=== PATIENT | female | born 1955 | race Caucasian/White ===

== ENCOUNTER → 2020-08-16 | Outpatient (CLI) | payer MEDICARE, OTHER ==
--- NOTE | 2020-08-16 13:05 | XR ---
EXAMINATION TYPE: XR KUB DATE OF EXAM: 08/16/2020 12:10 PM CLINICAL HISTORY: History of lithotripsy and bilateral renal calculi. TECHNIQUE: Two supine KUB images of the abdomen are obtained. COMPARISON: Post recent abdominal x-ray June 20, 2015. FINDINGS: Interval progression in bilateral renal nephrolithiasis. Roughly 10 right renal calculi up to 16 mm in size centrally in the right kidney. There are 2-3 adjacent left renal calculi centrally u p to 8 mm in size. Overall nonobstructive bowel gas pattern. Surgical changes epigastric region redemonstrated. Mild to moderate calcified plaque of the aorta. Multilevel spurring and disc space narrowing in the lower lum bar spine. Visualized lung bases are clear. IMPRESSION: As above.
== END | disposition home or self-care (01) ==
LOC: RADXRMAIN 11:48
PROVIDERS: ATTEND Urology
DX: N20.0 Calculus of kidney (principal)
CPT/HCPCS: 74018

== ENCOUNTER 2022-01-12 19:02 | Inpatient (IN) | payer MEDICARE, OTHER ==
[2022-01-12] MEDS ORDERED: ONDANSETRON 4 MG/2 ML VIAL IVP PRN (19:27)
[2022-01-12] MEDS ORDERED: NALOXONE 0.4 MG/ML 1 ML VIAL IV PRN (19:27)
[2022-01-12] MEDS ORDERED: ACETAMINOPHEN TAB 325 MG TAB PO PRN (19:27)
--- NOTE | 2022-01-12 19:30 | ED ---
General Adult HPI - General Chief complaint: Back Pain/Injury Stated complaint: Kidney stone Time Seen by Provider: 01/12/22 19:05 Source: patient, EMS Mode of arrival: EMS Limitations: no limitations - History of Present Illness Initial comments: Dictation was produced using [employer] dictation software. please excuse any grammatical, word or spelling errors. Chief Complaint: 66-year-old female transferred from [facility] for kidney stone History of Present Illness: 66-year-old female she woke up this morning with a kidney stone at 6 AM. She presented to [facility] emergency department where she was evaluated and had been diagnosed with a kidney stone. She has any open 1 cm obstructing kidney stone at the right UPJ. According documentation discussion was held with urologist who recommended patient be discharge if her pain is controlled. Patient refused and didn't feel like she would be able to tolerate the weekend to follow-up in the office on Saturday. Patient was transferred to us. She states her pain is a 5 out of 10 at the bedside after having received multiple doses of Toradol. The ROS documented in this emergency department record has been reviewed and confirmed by me. Those systems with pertinent positive or negative responses have been documented in the HPI. All other systems are other negative and/or noncontributory. PHYSICAL EXAM: General Impression: Alert and oriented x3, not in acute distress HEENT: Normocephalic atraumatic, extra-ocular movements intact, pupils equal and reactive to light bilaterally, mucous membranes moist. Cardiovascular: Heart regular rate and rhythm Chest: Able to complete full sentences, no retractions, no tachypnea Abdomen: abdomen soft, non-tender, non-distended, no organomegaly Musculoskeletal: Pulses present and equal in all extremities, no peripheral edema Motor: no focal deficits noted Neurological: CN II-XII grossly intact, no focal motor or sensory deficits noted Skin: Intact with no visualized rashes Psych: Normal affect and mood ED course: 66-year-old female presents emergency department from [facility]. Patient transferred here for further care. Patient has 1.1 cm obstructing nephrolithiasis at the right UPJ. Patient's well-appearing at the bedside she does not appear to be any significant acute distress. Vital signs upon arrival are stable. Patient case discussed with on-call urologist, Dr. Almaraz who is willing to accept patients care for hospital admission. - Related Data Home Medications Medication Instructions Recorded Confirmed Biotin 5 mg PO DAILY 05/12/15 06/13/15 Calcium Citrate Vitamin D3 2,000 mg PO DAILY 05/12/15 06/13/15 Cyanocobalamin [Vitamin B-12] 500 mcg PO DAILY 05/12/15 06/13/15 Omeprazole [PriLOSEC] 20 mg PO HS 05/12/15 06/13/15 Solifenacin Succinate [Vesicare] 10 mg PO DAILY 05/12/15 06/13/15 Stool Softener 2 tab PO DAILY 05/12/15 06/13/15 Allergies Allergy/AdvReac Type Severity Reaction Status Date / Time hydromorphone HCl Allergy Severe Unknown Verified 01/12/22 19:13 [From Dilaudid] hydrocodone bitartrate Allergy Unknown Verified 01/12/22 19:13 [From [place]] NSAIDS (Non-Steroidal Allergy Swelling Verified 01/12/22 19:13 Anti-Inflamma Penicillins Allergy Rash/Hives Verified 01/12/22 19:13 povidone-iodine Allergy Rash/Hives Verified 01/12/22 19:13 [From Betadine] soap [From Betadine] Allergy Rash/Hives Verified 01/12/22 19:13 strawberry [[place]] Allergy Itching Verified 01/12/22 19:13 Sulfa (Sulfonamide Allergy Rash/Hives Verified 01/12/22 19:13 Antibiotics) Review of Systems ROS Statement: Those systems with pertinent positive or pertinent negative responses have been documented in the HPI. ROS Other: All systems not noted in ROS Statement are negative. Past Medical History Past Medical History: Osteoarthritis (OA), Skin Disorder Additional Past Medical History / Comment(s): Psoriasis, HX perforated duodenal ulcer. PREVIOUS RENAL CALCULUS. History of Any Multi-Drug Resistant Organisms: None Reported Past Surgical History: Joint Replacement, Orthopedic Surgery Additional Past Surgical History / Comment(s): Bilateral knee replacements. Exploratory laparotomy with a omental patching of a perforated duodenal ulcer on 09/29/2013. Laparotomy with. Josefina-en-Y gastric bypass surgery and subtotal gastrectomy on 10/06/2013. Thoracentesis September 2013, Ureteral stent X2, DALI CATARACTS, RT. ANKLE SX. Lithotripsy in Past Anesthesia/Blood Transfusion Reactions: No Reported Reaction Past Psychological History: Anxiety, Depression Smoking Status: Former smoker Past Alcohol Use History: None Reported Past Drug Use History: None Reported - Past Family History Mother Family Medical History: Cancer Additional Family Medical History / Comment(s): Breast Father Family Medical History: Cancer Additional Family Medical History / Comment(s): Lung Sister(s) Family Medical History: Cancer Additional Family Medical History / Comment(s): Pancreatic General Exam Limitations: no limitations Course Vital Signs 01/12/22 19:06 Temperature 98.6 F Pulse Rate 86 Respiratory 18 Rate Blood Pressure 136/113 O2 Sat by Pulse 96 Oximetry Disposition Clinical Impression: Nephrolithiasis Disposition: ADMITTED IP TO THIS [facility] Condition: Fair Referrals: Mario Sue MD [Primary Care Provider] - 1-2 days Decision Time: 19:30
[2022-01-12] MEDS: MORPHINE SULFATE 2 MG/ML SYRINGE IV PRN (20:25)
[2022-01-12] MEDS: PANTOPRAZOLE 40 MG/10 ML VIAL IV SCH (20:25)
[2022-01-12] MEDS: SODIUM CHLORIDE 0.9% 1,000 ML IV SCH (20:26)
[2022-01-13] MEDS: MORPHINE SULFATE 2 MG/ML SYRINGE IV PRN ×3 (00:35→11:34)
[2022-01-13] MEDS: SODIUM CHLORIDE 0.9% 1,000 ML IV SCH ×3 (04:23→20:28)
--- NOTE | 2022-01-13 09:48 | P.GSHP ---
History of Present Illness H&P Date: 01/13/22 Chief Complaint: right ureteral stone This is a 66 yo female that presented to the hospital as a transfer for [facility] with a 1.1 cm right UPJ stone causing hydronephrosis and multiple non- obstructing right sided renal stone. On CT also evidence of left-sided renal stones. Her total stone burden on the right showed a 1.6 cm right-sided renal stone, in addition to the 2.7 cm cluster of stones that is in addition to the UPJ stone. Does have history of recurrent calcium oxalate stone. Indicates she did having right flank pain associated with nausea and vomiting. Denies any dysuria or gross hematuria. Denies any fevers or chills. Patient was admitted to the hospital due to the requirement of IV pain medications secondary to intractable pain. Has underwent ESWL and ureteroscopy with holmium laser in the past. This morning on evaluation she still having flank pain with nausea. - Constitutional Constitutional: Denies chills, Denies fever - Cardiovascular Cardiovascular: Denies chest pain, Denies shortness of breath - Respiratory Respiratory: Denies cough, Denies 7 - Gastrointestinal Gastrointestinal: Reports abdominal pain, Reports nausea, Reports vomiting - Genitourinary (Female) Genitourinary: Reports flank pain, Denies dysuria, Denies hematuria - Musculoskeletal Musculoskeletal: Denies myalgias - Integumentary Integumentary: Denies pruritus, Denies rash - Neurological Neurological: Denies numbness, Denies weakness - Psychiatric Psychiatric: Denies anxiety, Denies depression - Endocrine Endocrine: Denies fatigue, Denies weight change Past Medical History Past Medical History: Osteoarthritis (OA), Skin Disorder Additional Past Medical History / Comment(s): Psoriasis, HX perforated duodenal ulcer. PREVIOUS RENAL CALCULUS. History of Any Multi-Drug Resistant Organisms: None Reported Past Surgical History: Joint Replacement, Orthopedic Surgery Additional Past Surgical History / Comment(s): Bilateral knee replacements. Exploratory laparotomy with a omental patching of a perforated duodenal ulcer on 09/29/2013. Laparotomy with. Josefina-en-Y gastric bypass surgery and subtotal gastrectomy on 10/06/2013. Thoracentesis September 2013, Ureteral stent X2, DALI CATARACTS, RT. ANKLE SX. Lithotripsy in Past Anesthesia/Blood Transfusion Reactions: No Reported Reaction Past Psychological History: Anxiety, Depression Additional Psychological History / Comment(s): PAST HX Smoking Status: Former smoker Past Alcohol Use History: None Reported Additional Past Alcohol Use History / Comment(s): Smoked 1 PPD x 38yrs. Quit in 2013. Past Drug Use History: None Reported - Past Family History Mother Family Medical History: Cancer Additional Family Medical History / Comment(s): Breast Father Family Medical History: Cancer Additional Family Medical History / Comment(s): Lung Sister(s) Family Medical History: Cancer Additional Family Medical History / Comment(s): Pancreatic Medications and Allergies Home Medications Medication Instructions Recorded Confirmed Type Biotin 5 mg PO HS 05/12/15 01/12/22 History Omeprazole [PriLOSEC] 20 mg PO HS 05/12/15 01/12/22 History Cholecalciferol [Vitamin D3 (125 125 mcg PO HS 01/12/22 01/12/22 History Mcg = 5000 Iu)] Docusate [Colace] 100 mg PO HS 01/12/22 01/12/22 History Etanercept [Enbrel Sureclick] 50 mg SQ 01/12/22 01/12/22 History Fesoterodine Fumarate [Toviaz] 4 mg PO HS 01/12/22 01/12/22 History Rosuvastatin Calcium 5 mg PO HS 01/12/22 01/12/22 History lisinopriL [Zestril] 5 mg PO HS 01/12/22 01/12/22 History metFORMIN HCL [Glucophage] 500 mg PO HS 01/12/22 01/12/22 History Allergies Allergy/AdvReac Type Severity Reaction Status Date / Time hydromorphone HCl Allergy Severe Unknown Verified 01/12/22 19:57 [From Dilaudid] hydrocodone bitartrate Allergy Unknown Verified 01/12/22 19:57 [From [place]] NSAIDS (Non-Steroidal Allergy Swelling Verified 01/12/22 19:57 Anti-Inflamma Penicillins Allergy Rash/Hives Verified 01/12/22 19:57 povidone-iodine Allergy Rash/Hives Verified 01/12/22 19:57 [From Betadine] soap [From Betadine] Allergy Rash/Hives Verified 01/12/22 19:57 strawberry [[place]] Allergy Itching Verified 01/12/22 19:57 Sulfa (Sulfonamide Allergy Rash/Hives Verified 01/12/22 19:57 Antibiotics) Surgical - Exam Vital Signs Temp Pulse Resp BP Pulse Ox 98.6 F 86 18 136/113 96 01/12/22 19:06 01/12/22 19:06 01/12/22 19:06 01/12/22 19:06 01/12/22 19:06 - General no distress, moderate pain - Eyes normal ocular movement, no pale - ENT normal nares, normal mucosa - Respiratory normal expansion, normal respiratory effort - Abdomen Abdomen: soft, tender (Right flank) - Psychiatric oriented to time, oriented to person, oriented to place Assessment and Plan Assessment: This is a 60-year-old female with a 1.1 cm right-sided UPJ stone, and multiple right-sided renal left-sided renal stones. Her total stone burden on the right is greater than 4 cm. Patient is having intractable pain with nausea secondary to her stones. Discussed with her the option of a right sided stent insertion. Discussed with her the risk benefits and rationale given this. Discussed with him is not a definitive way to manage the stone, and given her the amount of her stone burden she will eventually require right-sided PCNL. -Nothing by mouth past midnight -Or for right-sided stent insertion -
[2022-01-13 10:44] LABS: Basophils % (A) 0 %; Eosinophils # (A) 0.1 k/uL (0-0.7); Eosinophils % (A) 0 %; HCT 40.2 % (34.0-46.0); HGB 12.8 gm/dL (11.4-16.0); Lymphocytes # (A) 1.1 k/uL (1.0-4.8); Lymphocytes % (A) 8 %; MCH 28.3 pg (25.0-35.0); MCHC 31.9 g/dL (31.0-37.0); MCV 88.6 fL (80.0-100.0); Mean Platelet Volume 7.2; Monocytes # (A) 0.7 k/uL (0-1.0); Monocytes % (A) 5 %; Neutrophils # (A) 11.6 k/uL (1.3-7.7); Neutrophils % (A) 85 %; Platelet Count 208 k/uL (150-450); RBC 4.53 m/uL (3.80-5.40); RDW 15.2 % (11.5-15.5); WBC 13.6 k/uL (3.8-10.6)
[2022-01-13] MEDS: PANTOPRAZOLE 40 MG/10 ML VIAL IV SCH (11:23)
--- NOTE | 2022-01-13 14:10 | XR ---
EXAMINATION TYPE: XR KUB DATE OF EXAM: 01/13/2022 Comparison: 08/16/2020 Clinical History: 66-year-old female Hematuria Findings: Nonobstructive bowel gas pattern. [id number] stool. Some surgical material right quadrant. Exte nsive bilateral nephrolithiasis. Calculi measure up to 1.8 cm on the right and 1.5 cm on the left. Impression: Bilateral nephrolithiasis as seen on patient's recent CT measuring up to 1.8 cm on the right and 1.5 cm on the left. Nonobstructive bowel gas pattern. [id number]-[id number] stool.
[2022-01-13 16:09] LABS: African American GFR (CKD) 39.4 (60.0-200.0); Anion Gap 11.8 mmol/L (10.00-18.00); BUN/Creat Ratio 15.54 Ratio (12.00-20.00); Blood Urea Nitrogen 24.4 mg/dL (9.0-27.0); Calcium 8.6 mg/dL (8.7-10.3); Carbon Dioxide 21.8 mmol/L (20.0-27.5); Potassium 4.6 mmol/L (3.5-5.5)
[2022-01-13] MEDS ORDERED: MORPHINE SULFATE 4 MG/ML SYRINGE IV PRN (19:05)
[2022-01-13] MEDS ORDERED: metFORMIN 500 MG TAB PO SCH (21:00)
[2022-01-13] MEDS ORDERED: ATORVASTATIN 10 MG TAB PO SCH (21:00)
[2022-01-13] MEDS ORDERED: lisinopriL 5 MG TAB PO SCH (21:00)
[2022-01-13] MEDS ORDERED: NON FORMULARY DRUG (Omeprazole [Prilosec] 20 MG Capsule.Dr) PO SCH (21:00)
[2022-01-13] MEDS ORDERED: DOCUSATE 100 MG CAP PO SCH (21:00)
[2022-01-13] MEDS ORDERED: CHOLECALCIFEROL 125 MCG (5000 IU) TABLET PO SCH (21:00)
[2022-01-14] MEDS: MORPHINE SULFATE 2 MG/ML SYRINGE IV PRN ×2 (00:40→07:21)
[2022-01-14] MEDS: SODIUM CHLORIDE 0.9% 1,000 ML IV SCH (05:21)
[2022-01-14] MEDS: PANTOPRAZOLE 40 MG/10 ML VIAL IV SCH (07:20)
[2022-01-14] MEDS ORDERED: IV FLUID CONTINUATION 1,000 ML IV ONE (07:59)
--- NOTE | 2022-01-14 08:04 | P.PN ---
Subjective Still having flank pain this morning, denies any nausea or vomiting or fevers. Objective - Vital Signs Vital signs: Vital Signs Temp 97.6 F 01/14/22 04:23 Pulse 76 01/14/22 04:23 Resp 17 01/14/22 04:23 BP 120/85 01/14/22 04:23 Pulse Ox 99 01/14/22 04:23 FiO2 Intake & Output 01/13/22 01/14/22 01/14/22 18:59 06:59 18:59 Other: Voiding Method Toilet Toilet # Voids 1 1 - Labs CBC & Chem 7: 01/13/22 09:58 01/13/22 09:58 Labs: Abnormal Lab Results - Last 24 Hours (Table) 01/13/22 01/13/22 Range/Units 09:58 09:58 WBC 13.6 H (3.8-10.6) k/uL Neutrophils # 11.6 H (1.3-7.7) k/uL Creatinine 1.6 H (0.6-1.5) mg/dL Est GFR (CKD-EPI)AfAm 39.4 L (60.0-200.0) Est GFR (CKD-EPI)NonAf 34.0 L (60.0-200.0) Glucose 111 H (70-110) mg/dL Calcium 8.6 L (8.7-10.3) mg/dL Assessment and Plan Assessment: This is a 60-year-old female with a 1.1 cm right-sided UPJ stone, and multiple right-sided renal left-sided renal stones. Her total stone burden on the right is greater than 4 cm. Patient is having intractable pain with nausea secondary to her stones. Discussed with her the option of a right sided stent insertion. Discussed with her the risk benefits and rationale given this. Discussed with him is not a definitive way to manage the stone, and given her the amount of her stone burden she will eventually require right-sided PCNL.t -Or for right-sided stent insertion -
[2022-01-14] MEDS ORDERED: SODIUM CHLORIDE 0.9% 100 ML with ceFAZolin 3,000 MG IV ONE ×2 (08:16)
--- NOTE | 2022-01-14 08:43 | P.OP ---
Date of Procedure: 01/14/22 Preoperative Diagnosis: Right-sided ureteral stone Postoperative Diagnosis: Same Procedure(s) Performed: Cystoscopy and right stent insertion Implants: 6-Tamazight by 26 cm stent to the right ureter Anesthesia: MARILYN Surgeon: Jose Cruz Torre Estimated Blood Loss (ml): 0 Pathology: none sent Condition: stable Disposition: PACU Indications for Procedure: This is a 60-year-old female with a 1.1 cm right-sided UPJ stone, and multiple right-sided renal left-sided renal stones. Her total stone burden on the right is greater than 4 cm. Patient is having intractable pain with nausea secondary to her stones. Discussed with her the option of a right sided stent insertion. Discussed with her the risk benefits and rationale given this. Discussed with him is not a definitive way to manage the stone, and given her the amount of her stone burden she will eventually require right-sided PCNL. Description of Procedure: Patient brought to the operating room, general anesthesia was induced. She was prepped and draped so fashion a placement dorsal lithotomy position. Cystoscopy fitted with 22-Tamazight sheath was inserted per urethra, cystoscopy was performed showed no abnormality within the bladder. Attention was then carried to the right ureteral orifice which was intubated with a sensor wire. The wire was seen coiling in the upper pole. Next a ureteral stent was passed over the wire, the proximal curl was visualized on fluoroscopy and the distal curl was visualized and cystoscope. The bladder was emptied at the end of the case. Patient tolerated procedure well was taken to recovery with stable condition
--- NOTE | 2022-01-14 08:44 | P.DS ---
Providers Date of admission: 01/12/22 19:27 Attending physician: Jose Cruz Torre MD Primary care physician: [facility] Course: This is 66-year-old female admitted to the hospital with a 1.1 cm right-sided UPJ stone and multiple right sided renal stone . She was admitted to the hospital due to intractable nausea and intractable pain. Patient was taken to the OR on 01/14 for right ureteral stent insertion. Following her surgery she was discharged home. At time of discharge she was tolerating a diet, ambulating, pain was controlled. She will follow-up as an outpatient to arrange for right-sided PCNL Patient Condition at Discharge: Fair Plan - Discharge Summary New Discharge Prescriptions: New Ciprofloxacin HCl [Cipro] 250 mg PO Q12HR #10 tablet No Action Omeprazole [PriLOSEC] 20 mg PO HS RX: Biotin 5 mg PO HS RX: Rosuvastatin Calcium 5 mg PO HS Docusate [Colace] 100 mg PO HS metFORMIN HCL [Glucophage] 500 mg PO HS lisinopriL [Zestril] 5 mg PO HS Fesoterodine Fumarate [Toviaz] 4 mg PO HS Cholecalciferol [Vitamin D3 (125 Mcg = 5000 Iu)] 125 mcg PO HS Etanercept [Enbrel Sureclick] 50 mg SQ TH Discharge Medication List Omeprazole [PriLOSEC] 20 mg PO HS 05/12/15 [History] RX: Biotin 5 mg PO HS 05/12/15 [History] Cholecalciferol [Vitamin D3 (125 Mcg = 5000 Iu)] 125 mcg PO HS 01/12/22 [Histor y] Docusate [Colace] 100 mg PO HS 01/12/22 [History] Etanercept [Enbrel Sureclick] 50 mg SQ TH 01/12/22 [History] Fesoterodine Fumarate [Toviaz] 4 mg PO HS 01/12/22 [History] RX: Rosuvastatin Calcium 5 mg PO HS 01/12/22 [History] lisinopriL [Zestril] 5 mg PO HS 01/12/22 [History] metFORMIN HCL [Glucophage] 500 mg PO HS 01/12/22 [History] Ciprofloxacin HCl [Cipro] 250 mg PO Q12HR #10 tablet 01/14/22 [Rx] Follow up Appointment(s)/Referral(s): Fercho Barber MD [STAFF PHYSICIAN] - 1 Week Mario Sue MD [Primary Care Provider] - 1-2 days Activity/Diet/Wound Care/Special Instructions: Increase fluid intake It's normal to see blood in the urine Discharge Disposition: HOME SELF-CARE
[2022-01-14 08:55] VITALS: RESP 18
--- NOTE | 2022-01-14 08:58 | FL ---
EXAMINATION TYPE: FL guidance operating room DATE OF EXAM: 01/14/2022 FLUOROSCOPY Fluoroscopy time of 3 seconds was used during ureteral stent placement. 1 image/s document/s the pro cedure.
[2022-01-14 10:48] VITALS: TEMP 98.3
[2022-01-14 10:50] VITALS: BP 120/69; PULSE 75
== END 2022-01-14 11:05 | disposition home or self-care (01) | DRG 661 ==
LOC: EC 19:02 → 5NMEDONC 19:27 → 6NMEDSUR 21:39
PROVIDERS: ADMIT Urology; ATTEND Urology
PROC: 0T768DZ Dilation of Right Ureter with Intraluminal Device, Via Natural or Artificial Opening Endoscopic (ICD-10-PCS; principal; 2022-01-14 08:00)
DX: N13.2 Hydronephrosis with renal and ureteral calculous obstruction (principal); F32.A Depression, unspecified; F41.9 Anxiety disorder, unspecified; Z28.310 Unvaccinated for COVID-19; Z79.84 Long term (current) use of oral hypoglycemic drugs; Z87.442 Personal history of urinary calculi; Z87.891 Personal history of nicotine dependence; Z96.653 Presence of artificial knee joint, bilateral; Z98.84 Bariatric surgery status; Z88.6 Allergy status to analgesic agent; Z88.5 Allergy status to narcotic agent; Z88.0 Allergy status to penicillin; Z88.2 Allergy status to sulfonamides; Z87.11 Personal history of peptic ulcer disease; Z80.3 Family history of malignant neoplasm of breast; Z80.1 Family history of malignant neoplasm of trachea, bronchus and lung; Z90.3 Acquired absence of stomach [part of]
CPT/HCPCS: 74018; 80048; 85025; 96361; 96374; 96375; 99284

== ENCOUNTER 2022-02-22 10:38 | Day surgery (SDC) | payer MEDICARE, OTHER ==
--- NOTE | 2022-02-20 12:45 | P.HPIHPCON ---
History of Present Illness H&P Date: 02/20/22 Chief Complaint: right sided renal stone This is a 67 yo female with hx of signficant stone burden within the right kidney, her stone burden is > 2cm. Discussed given her significant stone burden the option of doing the right sided PCNL. Discussed with her risk and benefit of surgery in details. Discussed the risk of bleeding, infection, injury to nearby organ including liver, lung and bowel. discussed potential of needing additional procedure. discussed also risk from anesthesia which includes but not limited to hear attack stroke, blood clots and respiratory complication. She understood all the risk and agreed to proceed with right sided PCNL Consent for Procedure: I have explained the operation/procedure to the patient, including the risks, benefits, side effects, alternative therapies (including not receiving the proposed treatment or service), the likelihood of the patient achieving his/her goals, and potential recuperation problems for the procedure/sedation/analgesia, as well as any blood products, if indicated. I also explained to the patient the risks, benefits and side effects of the alternatives, as well as the risks related to not receiving the proposed procedure, care, treatment, or services. Past Medical History Past Medical History: Osteoarthritis (OA), Skin Disorder Additional Past Medical History / Comment(s): Psoriasis, HX perforated duodenal ulcer. PREVIOUS RENAL CALCULUS. History of Any Multi-Drug Resistant Organisms: None Reported Past Surgical History: Joint Replacement, Orthopedic Surgery Additional Past Surgical History / Comment(s): Bilateral knee replacements. Exploratory laparotomy with a omental patching of a perforated duodenal ulcer on 09/29/2013. Laparotomy with. Josefina-en-Y gastric bypass surgery and subtotal gastrectomy on 10/06/2013. Thoracentesis September 2013, Ureteral stent X2, DALI CATARACTS, RT. ANKLE SX. Lithotripsy in Past Anesthesia/Blood Transfusion Reactions: No Reported Reaction Past Psychological History: Anxiety, Depression Additional Psychological History / Comment(s): PAST HX Smoking Status: Former smoker Past Alcohol Use History: None Reported Additional Past Alcohol Use History / Comment(s): Smoked 1 PPD x 38yrs. Quit in 2013. Past Drug Use History: None Reported - Past Family History Mother Family Medical History: Cancer Additional Family Medical History / Comment(s): Breast Father Family Medical History: Cancer Additional Family Medical History / Comment(s): Lung Sister(s) Family Medical History: Cancer Additional Family Medical History / Comment(s): Pancreatic Medications and Allergies Home Medications Medication Instructions Recorded Confirmed Type Biotin 5 mg PO HS 05/12/15 01/12/22 History Omeprazole [PriLOSEC] 20 mg PO HS 05/12/15 01/12/22 History Cholecalciferol [Vitamin D3 (125 125 mcg PO HS 01/12/22 01/12/22 History Mcg = 5000 Iu)] Docusate [Colace] 100 mg PO HS 01/12/22 01/12/22 History Etanercept [Enbrel Sureclick] 50 mg SQ TH 01/12/22 01/12/22 History Fesoterodine Fumarate [Toviaz] 4 mg PO HS 01/12/22 01/12/22 History Rosuvastatin Calcium 5 mg PO HS 01/12/22 01/12/22 History lisinopriL [Zestril] 5 mg PO HS 01/12/22 01/12/22 History metFORMIN HCL [Glucophage] 500 mg PO HS 01/12/22 01/12/22 History Ciprofloxacin HCl [Cipro] 250 mg PO Q12HR #10 tablet 01/14/22 Rx Allergies Allergy/AdvReac Type Severity Reaction Status Date / Time hydromorphone HCl Allergy Severe Unknown Verified 01/12/22 19:57 [From Dilaudid] hydrocodone bitartrate Allergy Unknown Verified 01/12/22 19:57 [From [place]] NSAIDS (Non-Steroidal Allergy Swelling Verified 01/12/22 19:57 Anti-Inflamma Penicillins Allergy Rash/Hives Verified 01/12/22 19:57 povidone-iodine Allergy Rash/Hives Verified 01/12/22 19:57 [From Betadine] soap [From Betadine] Allergy Rash/Hives Verified 01/12/22 19:57 strawberry [[place]] Allergy Itching Verified 01/12/22 19:57 Sulfa (Sulfonamide Allergy Rash/Hives Verified 01/12/22 19:57 Antibiotics) Surgical - Exam - General no distress, no pain - Eyes normal ocular movement, no pale - ENT normal nares, normal mucosa - Respiratory normal expansion, normal respiratory effort - Abdomen Abdomen: soft, non tender - Psychiatric oriented to time, oriented to person, oriented to place Assessment and Plan Assessment: OR for right sided PCNL
[~2022-02-22 10:38] MED LIST: CIPROFLOXACIN/DEXTROSE PMX 400 MG in DEXTROSE/WATER 1 200ML.BAG IVPB PRN; DEXAMETHASONE SOD PHOSPHATE 4 MG/ML 1 ML VIAL IV ONE; GENTAMICIN 120 MG in SODIUM CHLORIDE 0.9% 100 ML IVPB PRN; ONDANSETRON 4 MG/2 ML VIAL IVP ONE; fentaNYL (PF) 50 MCG/ML 2 ML AMP IV PRN
--- NOTE | 2022-02-22 11:13 | XR ---
EXAMINATION TYPE: XR KUB DATE OF EXAM: 02/22/2022 COMPARISON: KUB 01/13/2022 HISTORY: Kidney stones TECHNIQUE: KUB projection was obtained at 2 radiograph. FINDINGS: Bowel gas pattern. Surgical material redemonstrated in the right upper quadrant. Extensive bilateral nephrolithiasis redemonstrated. Calculi on the left measures up to 1.7 cm. Calculi on the right measu res up to 2.5 cm. Interval placement of right double-J ureteral stent in appropriate position. No def initive calculi along the expected course of the ureters. No acute osseous abnormality. IMPRESSION: Bilateral nephrolithiasis with interval placement of right ureteral stent.
[2022-02-22 11:52] LABS: Glucose,Whole Blood 89 mg/dL (70-110)
[2022-02-22] MEDS: LACTATED RINGERS 1,000 ML IV SCH (11:55)
[2022-02-22] MEDS ORDERED: ROCURONIUM 10 MG/ML (5 ML VIAL) IV ONE (13:37)
[2022-02-22] MEDS ORDERED: SUGAMMADEX SODIUM 200 MG/2 ML SDV IV ONE (13:37)
[2022-02-22] MEDS ORDERED: GLYCOPYRROLATE 0.2 MG/ML 2 ML VIAL ONE (13:37)
[2022-02-22] MEDS ORDERED: SUCCINYLCHOLINE CHLORIDE 200 MG/10 ML VIAL IV ONE (13:37)
[2022-02-22] MEDS ORDERED: MIDAZOLAM 2 MG/2 ML VIAL ONE (13:37)
[2022-02-22] MEDS ORDERED: PROPOFOL 10 MG/ML 20 ML VIAL IV ONE (13:37)
[2022-02-22] MEDS ORDERED: LIDOCAINE 2% INJ 20 MG/ML (2 ML VIAL) ONE (13:37)
[2022-02-22] MEDS ORDERED: NEOSTIGMINE 1 MG/ML 10 ML VIAL ONE (13:37)
[2022-02-22] MEDS ORDERED: fentaNYL (PF) 50 MCG/ML 2 ML AMP ONE (13:37)
[2022-02-22] MEDS ORDERED: LACTATED RINGERS 1,000 ML IV ONE (14:38)
[2022-02-22] MEDS ORDERED: IOPAMIDOL-370 50ML BTL MISCELLANE ONE (14:48)
[2022-02-22] MEDS ORDERED: MAG HYDROX/AL HYDROX/SIMETH 30 ML CUP PO PRN (16:02)
[2022-02-22] MEDS ORDERED: ACETAMINOPHEN TAB 325 MG TAB PO PRN (16:02)
[2022-02-22] MEDS ORDERED: ONDANSETRON 4 MG/2 ML VIAL IVP PRN ×2 (16:02→20:13)
[2022-02-22] MEDS ORDERED: HYDROmorphone 1 MG/ML 1 ML SYRINGE IVP PRN (16:03)
--- NOTE | 2022-02-22 16:11 | FL ---
EXAMINATION TYPE: FL Perc Nephrostomy New Access DATE OF EXAM: 02/22/2022 COMPARISON: KUB 02/22/2022, CT scan 01/12/2022 HISTORY: Right nephrolithiasis. PROCEDURE: Maximal barrier technique was utilized, hand hygiene obtained with soap and water and alcohol-based h and rub. The skin overlying the left kidney was localized using fluoroscopy and the overlying skin p repped and draped. Skin eric was made with a scalpel. Access was gained under fluoroscopy, following placement of a ureteral occlusion balloon by the referring clinician and instillation of air in the renal collecting system with a 21-gauge needle to the right kidney. A suitable posterior calyx was c hosen. A 0.018 inch wire was advanced. The access site was dilated , access site was upsized, safe ty wire deployed and subsequently a sheath was advanced into the renal pelvis following dilation with balloon along the tract. The patient underwent nephrolithotomy by the referring clinician. The pat ient remained in stable condition without complication. The patient was discharged to observation in the care of anesthesia. 5 minutes 26 seconds fluoroscopy time, 5 intraoperative C-arm images document the procedure IMPRESSION: STATUS POST NEPHROSTOMY PLACEMENT FOR NEPHROLITHOTOMY WITH FLUOROSCOPIC GUIDANCE. THIS PROCEDURE PER FORMED BY THE UNDERSIGNED.
[2022-02-22] MEDS ORDERED: HYDROmorphone 0.5 MG/0.5 ML SYRINGE IVP ONE ×2 (16:20→16:41)
--- NOTE | 2022-02-22 16:28 | P.OP ---
Date of Procedure: 02/22/22 Preoperative Diagnosis: Right-sided renal stones Postoperative Diagnosis: same Procedure(s) Performed: Cystoscopy Right sided percutaneous nephrolithotomy (>2Cm), right ureteral catherizatin, stent removal and nephrostomy tube placement Implants: none Anesthesia: ANYAA Surgeon: Jose Cruz Torre Estimated Blood Loss (ml): 150 Pathology: other (right sided renal stone) Condition: stable Disposition: PACU Indications for Procedure: This is a 67 yo female with hx of signficant stone burden within the right kidney, her stone burden is > 2cm. Discussed given her significant stone burden the option of doing the right sided PCNL. Discussed with her risk and benefit of surgery in details. Discussed the risk of bleeding, infection, injury to nearby organ including liver, lung and bowel. discussed potential of needing additional procedure. discussed also risk from anesthesia which includes but not limited to hear attack stroke, blood clots and respiratory complication. She understood all the risk and agreed to proceed with right sided PCNL Operative Findings: Multiple stones throughout the renal pelvis, upper pole, lower pole Description of Procedure: Patient brought to the operating room, general anesthesia was induced. She was prepped and draped in sterile fashion, and on the stretcher cystoscopy was performed showed no abnormality within the bladder. The stent was grasped and removed to the meatus. Next a sensor wire was advanced through the stent, the stent was removed with the wire in place. Next a 8-Kittitian balloon occluding catheter was passed over the wire and the wire was removed with the balloon occluding catheter in place. Next a Donaldson catheter was inserted into the bladder and the occlusion balloon was taped to the catheter. Next the patient was placed on the bed in prone position, all pressure points were padded. Next the flank was prepped and draped in sterile fashion. Next access was obtained by interventional radiology, please see Dr. Beatty for his portion of the case. Once 2 wires were down the ureter. Next a a balloon dilator was passed over the wire, the tract was dilated under fluoroscopy. Next a 30-Kittitian access sheath was passed over the balloon occlusion catheter and into the mid pole. Of note the access was in the midpole. Next the rigid nephroscope was inserted through the access sheath, renoscopy was performed showed multiple stones within the renal pelvis, and the lower pole. The stones were grasped and removed. One of the stone was too large to be grasped and this was fragmented using the ultrasound lithotripter. After fragmentation the stone was removed. At this time 2 additional stones were seen in the upper pole. I attempted to access the stones using the nephroscope but was not able to. At this time a flexible cys toscope was inserted through the access sheath, and the stones were visualized in the upper pole. Using a ZeroTip stone baskets both stones was grasped and removed. Repeat nephroscopy using the flexible cystoscope showed no additional stones within the kidney. Under fluoroscopy there is no evidence of any additional radiopaque densities. At this time a 12-Kittitian nephrostomy tube was placed over the wire and into the renal pelvis. Next the subcutaneous tissue was closed using 2-0 Vicryl. Also the medial side of the incision was closed using 2-0 Vicryl. The tube was secured to the skin using 2-0 silk sutures. Next sterile dressing was applied. Patient was placed in supine position on the stretcher. Patient was awakened from anesthesia and taken to recovery in stable condition
[2022-02-22] MEDS: SODIUM CHLORIDE 0.9% 1,000 ML IV SCH (17:30)
[2022-02-22] MEDS: MORPHINE SULFATE 4 MG/ML SYRINGE IVP PRN (20:09)
[2022-02-22] MEDS ORDERED: PANTOPRAZOLE 40 MG TABLET PO SCH (21:00)
[2022-02-22] MEDS ORDERED: lisinopriL 5 MG TAB PO SCH (21:00)
[2022-02-22] MEDS ORDERED: DOCUSATE 100 MG CAP PO SCH (21:00)
[2022-02-22] MEDS ORDERED: ATORVASTATIN 10 MG TAB PO SCH (21:00)
[2022-02-23] MEDS: MORPHINE SULFATE 4 MG/ML SYRINGE IVP PRN ×2 (00:02→13:18)
[2022-02-23] MEDS: HEPARIN SODIUM,PORCINE/PF 5,000 UNIT/0.5 ML SYRINGE SQ SCH ×2 (00:19→09:07)
[2022-02-23] MEDS: LACTATED RINGERS 1,000 ML IV SCH (06:53)
[2022-02-23] MEDS: SODIUM CHLORIDE 0.9% 1,000 ML IV SCH (06:53)
--- NOTE | 2022-02-23 13:10 | P.DS ---
Providers Attending physician: Jose Cruz Torre MD Primary care physician: [facility] Course: This is a 67-year-old female history of multiple large right-sided renal stones. Underwent a right-sided percutaneous nephrolithotomy on February 22. please see op note dated February 22 for surgery detail. Patient was admitted to the hospital postoperatively. She did well in the postoperative period. Donaldson cath was removed on postop day #1, she was able to void after removal of Donaldson catheter. She was discharged home on postop day #1, at time of discharge she was tolerating a diet, and ambulating, and pain was controlled. She was discharged with the nephrostomy tube, she will follow up in 1 week for nephrostomy tube removal Plan - Discharge Summary Discharge Rx Participant: Yes New Discharge Prescriptions: New Cephalexin [Keflex] 500 mg PO Q8HR #15 cap oxyCODONE-APAP 5-325MG [Percocet 5-325 mg] 1 tab PO Q4HR PRN 3 Days #18 tab PRN Reason: Pain No Action Omeprazole [PriLOSEC] 20 mg PO HS Rosuvastatin Calcium 5 mg PO HS Docusate [Colace] 100 mg PO HS metFORMIN HCL [Glucophage] 500 mg PO HS lisinopriL [Zestril] 5 mg PO HS Fesoterodine Fumarate [Toviaz] 4 mg PO HS Cholecalciferol [Vitamin D3 (125 Mcg = 5000 Iu)] 125 mcg PO HS Etanercept [Enbrel Sureclick] 50 mg SQ TH Discharge Medication List Omeprazole [PriLOSEC] 20 mg PO HS 05/12/15 [History] Cholecalciferol [Vitamin D3 (125 Mcg = 5000 Iu)] 125 mcg PO HS 01/12/22 [History] Docusate [Colace] 100 mg PO HS 01/12/22 [History] Etanercept [Enbrel Sureclick] 50 mg SQ TH 01/12/22 [History] Fesoterodine Fumarate [Toviaz] 4 mg PO HS 01/12/22 [History] Rosuvastatin Calcium 5 mg PO HS 01/12/22 [History] lisinopriL [Zestril] 5 mg PO HS 01/12/22 [History] metFORMIN HCL [Glucophage] 500 mg PO HS 01/12/22 [History] Cephalexin [Keflex] 500 mg PO Q8HR #15 cap 02/23/22 [Rx] oxyCODONE-APAP 5-325MG [Percocet 5-325 mg] 1 tab PO Q4HR PRN 3 Days #18 tab 02/23/22 [Rx] Follow up Appointment(s)/Referral(s): Mario Sue MD [Primary Care Provider] - 02/27/22 11:30 am Patient Instructions/Handouts: Cephalexin (By mouth), Oxycodone/Acetaminophen (By mouth), Percutaneous Nephrolithotomy (DC), Nephrostomy Tube Insertion (DC) Activity/Diet/Wound Care/Special Instructions: No heavy lifting or straining Increase fluid intake It's normal to have blood in the urine and in the nephrostomy tube You may shower, no baths You can change the dressing around the tube as needed Discharge Disposition: HOME SELF-CARE
[2022-02-23 14:32] VITALS: BP 115/73; PULSE 57; RESP 18; TEMP 98.1
[2022-02-24] MEDS ORDERED: metFORMIN 500 MG TAB PO SCH (21:00)
== END 2022-02-23 16:03 | disposition home or self-care (01) ==
LOC: OR 10:38 → 4SSUR 15:50 → OR 02-23 16:03
PROVIDERS: ATTEND Urology
DX: N20.0 Calculus of kidney (principal); M19.90 Unspecified osteoarthritis, unspecified site; L98.9 Disorder of the skin and subcutaneous tissue, unspecified; L40.9 Psoriasis, unspecified; F41.9 Anxiety disorder, unspecified; F32.A Depression, unspecified; Z98.890 Other specified postprocedural states
CPT/HCPCS: 82365; 50432; 74018; 50081; 52005; C1769 ×4; C1758; C1894; C1729; J2250; J0330; J2270 ×2; J1100; J2710; J0690; J2405; J3010; J0744; J1580; J2704; J1170; Q9967; J1644; J2001